=== PATIENT | female | born 1940 | race Caucasian/White ===

== ENCOUNTER 2019-01-19 20:00 | Emergency (ER) | payer MEDICARE ==
[~2019-01-19] VITALS: Ht 167.6 cm; Wt 70.3 kg
[2019-01-19] MEDS ORDERED: CARVEDILOL (20:17)
[2019-01-19] MEDS ORDERED: NAMENDA (20:17)
[2019-01-19 22:20] VITALS: BP 145/91
== END 2019-01-19 22:20 | disposition home or self-care (01) ==
LOC: M.ERS 20:00
DX: R04.0 Epistaxis (principal); I10 Essential (primary) hypertension